=== PATIENT | male | born 1980 | race Caucasian/White ===

== ENCOUNTER 2020-11-29 03:38 | Emergency (ER) | payer OTHER, SELFPAY ==
[2020-11-29 03:48] VITALS: BP 148/74; PULSE 71; RESP 20; TEMP 36.6; O2SAT 100; BMI 28.8
--- NOTE | 2020-11-29 04:00 | CT_ITS ---
PROCEDURE INFORMATION: Exam: CT Lumbar Spine Without Contrast Exam date and time: 11/29/2020 4:00 AM Age: 40 years old Clinical indication: Patient HX: Low back pain and coccyx pain after doing multiple situps really fast yesterday pain is into his coccyx but not down his legs; Additional info: Severe lower back pain TECHNIQUE: Imaging protocol: Computed tomography images of the lumbar spine without contrast. Radiation optimization: All CT scans at this facility use at least one of these dose optimization techniques: automated exposure control; mA and/or kV adjustment per patient size (includes targeted exams where dose is matched to clinical indication); or iterative reconstruction. COMPARISON: No relevant prior studies available. FINDINGS: Vertebrae: No acute fracture. Normal alignment. Discs/Spinal canal/Neural foramina: There is a mild broad-based left paracentral disc bulge at L4/5 and L5/S1 Other bones/joints: The osseous structures are intact without a fracture or dislocation. Reproductive: The prostate gland is mildly enlarged. Soft tissues: There is mild stranding adjacent to the distal coccyx which may be a mild soft tissue contusion. IMPRESSION: 1. Mild pericoccygeal stranding which may be a mild soft tissue contusion. No acute fracture or dislocation. 2. Mild broad based left paracentral disc bulging at L4/5 and L5/S1.
[2020-11-29 04:02] VITALS: BP 149/91; PULSE 80; O2SAT 100
[2020-11-29 04:13] LABS: Basophils % 0.4 % (0.1-2.0); Eosinophils # 0.2 K/mm3 (0.0-0.4); Eosinophils % 2.1 % (0.1-12.0); Hematocrit 43.7 % (42.0-52.0); Lymphocytes # 3.1 K/mm3 (0.7-4.5); Lymphocytes % 36.8 % (10-50); Mean Corpuscular HGB Conc 34.3 g/dL (31.8-35.4); Mean Corpuscular Hemoglobin 31.1 pg (27.0-31.2); Mean Corpuscular Volume 90.6 fl (80-94); Mean Platelet Volume 7.5 fl (7.4-10.4); Monocytes # 0.5 K/mm3 (0.1-1.0); Monocytes % 5.6 % (1.7-9.3); Neutrophils # 4.6 K/mm3 (1.8-7.8); Neutrophils % 55.1 % (37.0-80.0); Platelet Count 206 K/mm3 (142-424); Red Blood Count 4.82 M/mm3 (4.60-6.20); Red Cell Distribution Width 12.9 % (11.5-17.5); White Blood Count 8.3 K/mm3 (4.8-10.8)
[2020-11-29 04:17] LABS: Alanine Aminotransferase 22 U/L (12-78); Albumin Level 4.2 g/dl (3.5-5.0); Albumin/Globulin Ratio 1.6 (1.1-1.8); Alkaline Phosphatase 65 U/L (38-126); Anion Gap 7.1 mEq/L (5-15); Aspartate Amino Transferase 25 U/L (17-59); Bilirubin,Total 0.8 mg/dl (0.2-1.3); Blood Urea Nitrogen 18 mg/dl (9-20); Carbon Dioxide 29 mmol/L (22.0-30.0); Chloride 103 mmol/L (98-107); Creatinine Clearance Estimated 87 mL/min (50-200); Estimated Glomerular Filt Rate 56 ml/min (>60); GFR (African American) 68 ML/MIN (>60); Globulin 2.7 g/dL (1.3-3.2); Glucose 113 mg/dl (74-100); Potassium 4.1 mmoL/L (3.5-5.1); Sodium 135 mmol/L (136-145); Total Protein,Serum 6.9 g/dl (6.3-8.2)
[2020-11-29 04:23] LABS: C-Reactive Protein 2.3 mg/L (0-4)
[2020-11-29 04:35] LABS: Procalcitonin 0.073 ng/mL (0.0-2.0)
[2020-11-29 05:00] LABS: Erythrocyte Sedimentation Rate 16 mm/hr (0-15)
[2020-11-29 05:15] VITALS: BP 145/77; PULSE 72; O2SAT 99
--- NOTE | 2020-11-29 05:55 | HMH.EDGENADL ---
ED Disposition Clinical Impression: Coccygeal pain, acute Coccygeal contusion Qualifiers: Encounter type: initial encounter Qualified Code(s): S30.0XXA - Contusion of lower back and pelvis, initial encounter Disposition: Home, Self-Care Condition on Discharge: Good Instructions: Coccydynia Additional Instructions: use meds and see pcp for follow up Prescriptions: predniSONE [Prednisone 20mg Tab] 20 mg PO BID #10 tab Transmission Status: Pending to [facility] # Ketorolac Tromethamine [Toradol 10mg tablet] 10 mg PO Q6HP PRN #10 tab MDD 40mg/day PRN Reason: Moderate To Severe Pain Transmission Status: Pending to [facility] # Referrals: Bianca Denise [Primary Care Provider] - - Critical Care Critical Care Time: No Attestation: On 11/29/20, the high probability of a clinically significant, sudden or life threatening deterioration of the following system(s) required my full and direct attention, intervention and personal management. The time I documented below is in addition to time spent performing reported procedures but includes the following listed in this critical care notation. Medical Decision Making - Medical Records Medical records reviewed: Yes: I reviewed the patient's medical records. - Gautam Inquiry Pt receiving controlled substance: No Vital Signs: 11/29/20 03:48 11/29/20 04:02 11/29/20 05:15 Temperature 97.8 F Temperature Source Oral Pulse Rate 80 72 Pulse Rate [Right] 71 Respiratory Rate 20 Blood Pressure 149/91 H 145/77 H Blood Pressure [Right Arm] 148/74 H Blood Pressure Mean [Right Arm] 98 Blood Pressure Source [Right Arm] Automatic Cuff Blood Pressure Position [Right Arm] Supine 02 Sat by Pulse Oximetry 100 100 99 Oxygen Delivery Method Room Air - Lab Data Lab results reviewed: Yes: I reviewed the patient's lab results. Lab Results 11/29/20 04:00: WBC 8.3, RBC 4.82, Hgb 15.0, Hct 43.7, MCV 90.6, MCH 31.1, MCHC 34.3, RDW 12.9, Plt Count 206, MPV 7.5, Neut % (Auto) 55.1, Lymph % (Auto) 36.8, [place] % (Auto) 5.6, Eos % (Auto) 2.1, Baso % (Auto) 0.4, Neut # (Auto) 4.6, Lymph # (Auto) 3.1, [place] # (Auto) 0.5, Eos # (Auto) 0.2, Baso # (Auto) 0.0, ESR 16 H 11/29/20 04:00: Sodium 135 L, Potassium 4.1, Chloride 103, Carbon Dioxide 29, Anion Gap 7.1, BUN 18, Creatinine 1.40 H, Estimated Creat Clear 87, Estimated GFR 56 L, Est GFR ( Amer) 68, Glucose 113 H, Calcium 9.0, Total Bilirubin 0.8, AST 25, ALT 22, Alkaline Phosphatase 65, C-Reactive Protein 2.3, Total Protein 6.9, Albumin 4.2, Globulin 2.7, Albumin/Globulin Ratio 1.6, Procalcitonin 0.073 Result diagrams: 11/29/20 04:00 11/29/20 04:00 Orders (Tests/Meds): ED MEDICATIONS Generic Name Dose Route Start Last Admin Trade Name Freq PRN Reason Stop Dose Admin Sodium Chloride 1,000 mls @ 999 mls/hr 11/29/20 04:00 11/29/20 04:04 Sod Chlor 0.9% 1000ml Bag IV 11/29/20 05:00 999 mls/hr .Q1H1M CORNELL Administration Discontinued Medications Generic Name Dose Route Start Last Admin Trade Name Freq PRN Reason Stop Dose Admin Hydromorphone HCl 1 mg 11/29/20 03:58 11/29/20 04:03 Hydromorphone 2mg/Ml Syringe IV 11/29/20 03:59 1 mg ONCE ONE Administration Ketorolac Tromethamine 30 mg 11/29/20 05:58 11/29/20 06:00 Ketorolac 30mg/Ml Vial IV 11/29/20 05:59 30 mg ONCE ONE Administration Methylprednisolone Sodium Succinate 125 mg 11/29/20 03:58 11/29/20 04:03 Methylprednisolone Sod Succ 125mg Vial IV 11/29/20 03:59 125 mg ONCE ONE Administration Ondansetron HCl 4 mg 11/29/20 03:58 11/29/20 04:03 Ondansetron 4mg/2ml Vial IV 11/29/20 03:59 4 mg ONCE ONE Administration - CT Data CT Scan: L-Spine Time Received: 06:[address] Reviewed: Yes: I have viewed the radiologist's interpretation Preliminary Findings: Abnormal (see report ) Medical Decision Narrative: ct showed pericoccygeal stranding General Adult H
[2020-11-29 06:26] VITALS: BP 145/77; PULSE 72; RESP 20; TEMP 36.6; O2SAT 99
== END 2020-11-29 06:39 | disposition home or self-care (01) ==
PROVIDERS: Emergency Provider Emergency Medicine; PCP Family Medicine
DX: M53.3 Sacrococcygeal disorders, not elsewhere classified (principal)
CPT/HCPCS: 72131; 80053; 84145; 85025; 85651; 86140; 96365; 96367; 99282; J2405

== ENCOUNTER 2021-07-09 22:29 | Emergency (ER) | payer OTHER, SELFPAY ==
[2021-07-09 22:31] VITALS: BP 137/89; PULSE 68; RESP 16; TEMP 36.9; O2SAT 96; BMI 28.8
--- NOTE | 2021-07-09 22:36 | XR_ITS ---
PROCEDURE INFORMATION: Exam: XR Right Finger(s) Exam date and time: 07/09/2021 10:36 PM Age: 41 years old Clinical indication: Injury or trauma; Other: Laceration; Right; Index finger; Additional info: Lac TECHNIQUE: Imaging protocol: XR Right fingers. Views: Minimum 2 views. COMPARISON: No relevant prior studies available. FINDINGS: Bones/joints: Normal. Soft tissues: Normal. IMPRESSION: No acute findings.
--- NOTE | 2021-07-09 22:47 | PC.NURSE ---
pt to rad
--- NOTE | 2021-07-09 22:49 | PC.NURSE ---
pt returned from rad
[2021-07-09 23:00] VITALS: BP 142/88; PULSE 74; O2SAT 95
--- NOTE | 2021-07-09 23:03 | PC.NURSE ---
pt to rad.
--- NOTE | 2021-07-09 23:33 | HMH.EDWNDL ---
ED Disposition Clinical Impression: Laceration of finger Qualifiers: Encounter type: initial encounter Finger: index finger Damage to nail status: with damage Foreign body presence: without foreign body Laterality: right Qualified Code(s): S61.310A - Laceration without foreign body of right index finger with damage to nail, initial encounter Disposition: Hospice - Medical Facility Condition on Discharge: Good Instructions: DI for Laceration Repair Additional Instructions: suture out 10 days and recheck if needed Referrals: Bianca Denise [Primary Care Provider] - - Critical Care Critical Care Time: No Attestation: On 07/09/21, the high probability of a clinically significant, sudden or life threatening deterioration of the following system(s) required my full and direct attention, intervention and personal management. The time I documented below is in addition to time spent performing reported procedures but includes the following listed in this critical care notation. Medical Decision Making - Medical Records Medical records reviewed: Yes: I reviewed the patient's medical records. - Gautam Inquiry Pt receiving controlled substance: No Vital Signs: 07/09/21 22:31 07/09/21 23:00 Temperature 98.4 F Temperature Source Oral Pulse Rate 74 Pulse Rate [Left] 68 Respiratory Rate 16 Blood Pressure 142/88 H Blood Pressure [Right Arm] 137/89 Blood Pressure Mean [Right Arm] 105 02 Sat by Pulse Oximetry 96 95 Oxygen Delivery Method Room Air Room Air - Radiology Data #1 Image(s): Hand Image Reviewed: Yes I have reviewed radiologist's interpretation Preliminary Findings: No Fracture Seen Medical Decision Narrative: will have pt keep clean and dry and sutures out 10 days and recheck if needed Wound/Laceration HPI - General Chief Complaint: Wound/Laceration Stated Complaint: AO 07/09@2019 lac to R index finger Time Seen by Provider: 07/09/21 23:00 Mode of Arrival: Ambulatory Source of Information: Patient Limitations: Physical Limitations Description of Symptoms (Recalled from ER Triage Doc. by RN): pt stated he got a right index finger laceration on a new kitchen knife as he was removing it from the package - History of Present Illness HPI narrative: avulsion lac dorsum rt index lac at home Onset (ago): hour(s) Extremity Location: Right: hand Place: home Patient tetanus UTD: Yes Context: accidental Associated symptoms: none - Related Data Home Medications Medication Instructions Recorded Confirmed No Known Home Medications 01/22/21 01/22/21 Allergies Allergy/AdvReac Type Severity Reaction Status Date / Time Sulfa (Sulfonamide Allergy Verified 01/22/21 11:50 Antibiotics) [facility] History - Hepatitis A Screen Drug use history?: No High risk sexual behaviors?: No History of sexually transmitted infection?: No Currently employed?: No Childcare worker?: No Do you have indoor plumbing?: Yes Do you have electricity?: Yes Attestation statement:: This patient has been screened for Hepatitis A risk factors. I have reviewed the patient's past medical history: Yes Medical History: Denies:: Cancer, Diabetes Mellitus Type 1, Diabetes Mellitus Type 2, MRSA Other Surgeries: Yes: Other Amputation: No Fractures: No Comment: eye, cyst removed, prk in eyes - Social History Smoking Status: Never smoker Alcohol Intake: never Substance Use Type: denies use Occupational Status: employed Housing: house Household Members: family Family Hx:: No significant family history ROS Obtained: Yes All systems reviewed & no additional complaints - Constitutional Constitutional: Denies fever(s) - Eyes Eyes: Denies change in vision - ENT Ears, Nose, Mouth, and Throat: Denies sore throat - Cardiovascular Cardiovascular: Denies chest pain - Respiratory Respiratory: Denies shortness of breath - Gastrointestinal Gastrointestingal: Denies: abdominal pain - Shelia
[2021-07-09 23:36] VITALS: BP 148/93; PULSE 72; RESP 16; TEMP 36.9; O2SAT 95
== END 2021-07-10 00:04 | disposition home or self-care (01) ==
PROVIDERS: Emergency Provider Emergency Medicine; PCP Family Medicine
DX: S61.310A Laceration without foreign body of right index finger with damage to nail, initial encounter (principal); W26.0XXA Contact with knife, initial encounter; Y92.010 Kitchen of single-family (private) house as the place of occurrence of the external cause
CPT/HCPCS: 12001; 73140; 99282

== ENCOUNTER 2022-09-13 08:00 | Emergency (ER) | payer OTHER, SELFPAY ==
[2022-09-13 08:10] VITALS: BP 136/79; PULSE 94; RESP 17; TEMP 37.9; O2SAT 95; BMI 29.8
--- NOTE | 2022-09-13 08:18 | EXP.UTC ---
Discharge Plan Disposition Patient Disposition: Home, Self-Care Condition: Good Prescriptions Prescriptions: New amoxicillin-pot clavulanate 875-125 mg Tablet 1 tab PO Q12H Qty: 20 0RF Referrals Follow up/Referrals: Bianca Denise [Primary Care Provider] - See instructions Activity Restrictions/Add. Instructions Additional Instructions/Restrictions: Clean bites with antibacterial soap and water Follow up immediately if signs of worsening infection including but not limited to spreading of redness, drainage, streaks ETC Take oral antibiotics as prescribed Follow up with your Family Doctor if no improvement or any worsening of symptoms Clinical Impressions Clinical Impression: Cat bite Qualifiers: Encounter type: initial encounter Qualified Code(s): W55.01XA - Bitten by cat, initial encounter Stand Alone Forms Stand Alone Forms: Work/School Release Instructions Patient Instructions: Amoxicillin and Clavulanic Acid, DI for Cat Bite Discharge ED Provider: Melyssa Grimes [facility] HPI General Stated complaint: AO [id number] cat bite to right foot Time Seen by Provider: 09/13/22 08:18 History of Present Illness Provider Complaint: Patient state that his cat attacked his right foot yesterday while he was doing laundry and bite him on his right ankle States that since then it has got more sore, tender to the touch and starting to look a little red and hurts States that he came in this morning cause it wasnt feeling any better and more sore Related Data Previous Rx's Medication Instructions Recorded amoxicillin 875 mg-potassium 1 tab PO Q12H #20 tabs 09/13/22 clavulanate 125 mg tablet Allergies Allergy/AdvReac Type Severity Reaction Status Date / Time Sulfa (Sulfonamide Allergy Verified 01/08/22 09:53 Antibiotics) [facility] Disclaimer: The information contained in this section may have been updated after the patient was seen, as this information can be updated by other users. Social History Smoking Status: Never smoker alcohol intake: never substance use type: denies use current occupational status: employed Travel in the last 8 weeks: None household members: family housing: house ROS Obtained: Yes All systems reviewed & no additional complaints except as documented and Yes Systems reviewed as appropriate & no additional complaints except as documented Constitutional Constitutional: Reports system reviewed and no additional complaints, except as documented, Reports as per HPI and Denies fever(s) ENT Ears, Nose, Mouth, and Throat: Reports system reviewed and no additional complaints, except as documented and Reports as per HPI Cardiovascular Cardiovascular: Reports system reviewed and no additional complaints, except as documented and Reports as per HPI Respiratory Respiratory: Reports system reviewed and no additional complaints, except as documented and Reports as per HPI Gastrointestinal Gastrointestingal: Reports system reviewed and no additional complaints, except as documented and as per HPI Integumentary/Breasts Skin/Breast: Reports system reviewed and no additional complaints, except as documented and Reports as per HPI Comments: cat bite to right ankle Physical Exam General General appearance: alert and in no apparent distress Respiratory Respiratory exam: Present normal lung sounds bilaterally; Absent respiratory distress or wheezes Cardiovascular Cardiovascular exam: Present regular rate, normal rhythm and normal heart sounds Abdominal Exam Abdominal exam: Present soft and normal bowel sounds; Absent distention or tenderness Expanded Lower Extremity Exam Right: Top foot image: 1. cat bite noted with mild redness around bites Neurovascular/Tendon exam: Present normal capillary refill; Absent pulse deficit or motor deficit Neurological Exam Neurological exam: Present alert and oriented X3 Medical Decision Making Gautam Inquiry Pt receivi
[2022-09-13 08:44] VITALS: BP 136/79; PULSE 94; RESP 95; TEMP 37.9; O2SAT 94
== END 2022-09-13 08:50 | disposition home or self-care (01) ==
PROVIDERS: Emergency Provider Nurse Practitioner; PCP Family Medicine
DX: S91.051A Open bite, right ankle, initial encounter (principal); W55.01XA Bitten by cat, initial encounter
CPT/HCPCS: 90471; 90715; 99212; 99214; G0463

== ENCOUNTER 2022-09-14 21:11 | Observation (INO) | payer OTHER, SELFPAY ==
[2022-09-14 21:19] VITALS: BP 136/92; PULSE 76; RESP 18; TEMP 36.8; O2SAT 97; BMI 29.5
--- NOTE | 2022-09-14 21:45 | HMH.EDANIB ---
Discharge Plan Disposition Patient Disposition: Admitted As Inpatient Chief Complaint: Animal Bite Clinical Impressions Clinical Impression: Cat bite, Cellulitis Discharge ED Provider: Yvon (TERESITA)David Animal Bite HPI General Chief Complaint: Animal Bite Stated Complaint: AO09/12 cat bite RT leg Time Seen by Provider: 09/14/22 21:45 Mode of Arrival: Ambulatory Source of Information: Patient Limitations: No Limitations Description of Symptoms (Recalled from ER Triage Doc. by RN): Pt arrives to ED with c/o increasing pain and swelling to right lower leg r/t a cat bite that occured . Pt states it was his cat and the animal is up to date on shots. Pt was seen at [facility] yesterday and given anbx, but states it has worsen since then. History of Present Illness HPI narrative: recent cat bite rt lower ext and was his cat and immun current - pt was seen in [facility] and given abx but has continued to worsen and pt feels achey and nausea - no fever MD complaint: animal bite Onset (ago): day(s) Animal: cat Description of animal: household pet Mechanism: bite Right: lower leg Pain description: sharp Context: unprovoked Associated symptoms: none Treatments prior to arrival: other (abx ) Related Data Patient tetanus UTD: Yes Previous Rx's Medication Instructions Recorded amoxicillin 875 mg-potassium 1 tab PO Q12H #20 tabs 09/13/22 clavulanate 125 mg tablet Allergies Allergy/AdvReac Type Severity Reaction Status Date / Time Sulfa (Sulfonamide Allergy Verified 01/08/22 09:53 Antibiotics) [facility] Disclaimer: The information contained in this section may have been updated after the patient was seen, as this information can be updated by other users. Social History Smoking Status: Never smoker alcohol intake: never substance use type: denies use current occupational status: employed Travel in the last 8 weeks: None household members: family housing: house ROS Obtained: Yes All systems reviewed & no additional complaints except as documented Physical Exam General General appearance: alert Head Head exam: normocephalic Eye Eye exam: Present PERRL and EOMI ENT ENT exam: Present mucous membranes moist Neck Neck exam: Present trachea midline Respiratory Respiratory exam: Absent respiratory distress Cardiovascular Cardiovascular exam: Present regular rate Abdominal Exam Abdominal exam: Present soft Expanded Lower Extremity Exam Right: Lower leg exam: Present tenderness and erythema; Absent Homans' sign Neurovascular/Tendon exam: Absent pulse deficit, motor deficit or sensory deficit Neurological Exam Neurological exam: Present alert, oriented X3 and CN II-XII intact; Absent motor sensory deficit Psychiatric Psychiatric exam: Present normal affect Skin Skin exam: Present other (bite with tenderness and reddness rt lower ext ) Medical Decision Making Medical Records Medical records reviewed: Yes I reviewed the patient's medical records. Gautam Inquiry Pt receiving controlled substance: No Vital Signs: 09/14/22 21:19 Temperature 98.3 F Temperature Source Oral Pulse Rate [Right] 76 Respiratory Rate 18 Blood Pressure [Right Arm] 136/92 H Blood Pressure Mean [Right Arm] 106 Blood Pressure Position [Right Arm] Sitting 02 Sat by Pulse Oximetry 97 Oxygen Delivery Method Room Air Lab Data Lab results reviewed: Yes I reviewed the patient's lab results. Lab Results 09/14/22 22:00: WBC 10.1, RBC 4.95, Hgb 15.8, Hct 46.5, MCV 93.8, MCH 31.9 H, MCHC 34.0, RDW 12.9, Plt Count 203, MPV 7.7, Neut % (Auto) 72.5, Lymph % (Auto) 20.9, [place] % (Auto) 4.9, Eos % (Auto) 1.1, Baso % (Auto) 0.6, Neut # (Auto) 7.3, Lymph # (Auto) 2.1, [place] # (Auto) 0.5, Eos # (Auto) 0.1, Baso # (Auto) 0.1 09/14/22 22:00: Sodium 136, Potassium 3.9, Chloride 101, Carbon Dioxide 27, Anion Gap 11.9, BUN 16, Creatinine 1.40 H, Estimated Creat Clear 87, Estimated GFR 55 L, Est GFR ( Amer) 6
--- NOTE | 2022-09-14 21:53 | PC.NURSE ---
Dr. Sanz at
[2022-09-14 22:10] LABS: Coronavirus 19, PCR Not Detected (NotDetected); Influenza A, PCR Not Detected (NotDetected); Influenza B, PCR Not Detected (NotDetected)
[2022-09-14 22:16] LABS: Basophils # 0.1 K/mm3 (0-0.2); Basophils % 0.6 % (0.1-2.0); Chloride 101 mmol/L (98-107); Eosinophils # 0.1 K/mm3 (0.0-0.4); Eosinophils % 1.1 % (0.1-12.0); Hematocrit 46.5 % (42.0-52.0); Hemoglobin 15.8 g/dL (14.1-18.0); Lymphocytes # 2.1 K/mm3 (0.7-4.5); Lymphocytes % 20.9 % (10-50); Mean Corpuscular Hemoglobin 31.9 pg (27.0-31.2); Mean Corpuscular Volume 93.8 fl (80-94); Mean Platelet Volume 7.7 fl (7.4-10.4); Monocytes # 0.5 K/mm3 (0.1-1.0); Monocytes % 4.9 % (1.7-9.3); Neutrophils # 7.3 K/mm3 (1.8-7.8); Neutrophils % 72.5 % (37.0-80.0); Platelet Count 203 K/mm3 (142-424); Potassium 3.9 mmoL/L (3.5-5.1); Red Blood Count 4.95 M/mm3 (4.60-6.20); Red Cell Distribution Width 12.9 % (11.5-17.5); Sodium 136 mmol/L (136-145); White Blood Count 10.1 K/mm3 (4.8-10.8)
[2022-09-14 22:19] LABS: Alanine Aminotransferase 38 U/L (12-78); Albumin Level 4.7 g/dl (3.5-5.0); Albumin/Globulin Ratio 1.5 (1.1-1.8); Alkaline Phosphatase 70 U/L (38-126); Anion Gap 11.9 mEq/L (5-15); Aspartate Amino Transferase 42 U/L (17-59); Bilirubin,Total 1.1 mg/dl (0.2-1.3); Blood Urea Nitrogen 16 mg/dl (9-20); Carbon Dioxide 27 mmol/L (22.0-30.0); Creatinine Clearance Estimated 87 mL/min (50-200); Estimated Glomerular Filt Rate 55 ml/min (>60); GFR (African American) 67 ML/MIN (>60); Globulin 3.2 g/dL (1.3-3.2); Total Protein,Serum 7.9 g/dl (6.3-8.2)
[2022-09-14 22:20] LABS: Calcium 9.2 mg/dl (8.4-10.2); Glucose 123 mg/dl (74-100); Lactic Acid 1.1 mmol/L (0.7-2.1)
--- NOTE | 2022-09-14 22:39 | PC.NURSE ---
Called report to Nikole Gutierrez RN
[2022-09-14 22:40] VITALS: BP 135/89; PULSE 75; RESP 19; TEMP 36.8; O2SAT 98
--- NOTE | 2022-09-14 22:50 | PC.NURSE ---
pt arrived @ [phone] via wheelchair
--- NOTE | 2022-09-14 22:53 | EXP.HP ---
History of Present Illness *Admission Date: 09/14/22 *Reason for visit:: Cat bite *History of present illness: Mr. Velázquez is a 42 year old male who was bitten by his house cat; was treated at [facility] yesterday and was started on Augmenten. He was also given a Tetanus shot. Comes in to the ER tonight, stating that his RLE/ankle is worse. Having more pain and redness. CBC and CMP are unchanged from yesterday. No abscess appreciated, but erythema and cellulitis more pronounced. [facility] Disclaimer: The information contained in this section may have been updated after the patient was seen, as this information can be updated by other users. Surgical History H/O removal of cyst Family History Other No significant family history Social History Smoking Status: Never smoker alcohol intake: never substance use type: denies use current occupational status: employed Travel in the last 8 weeks: None household members: family housing: house Review of Systems Review of Systems Review of systems:: pertinent systems reviewed and negative unless documented below Constitutional Constitutional: Reports system reviewed and no additional complaints, except as documented, Denies chills and Reports fever(s) Eyes Eyes: Reports system reviewed and no additional complaints, except as documented ENT Ears, Nose, Mouth, and Throat: Reports system reviewed and no additional complaints, except as documented *Cardiovascular Cardiovascular: Reports system reviewed and no additional complaints, except as documented *Respiratory Respiratory: Reports system reviewed and no additional complaints, except as documented *Gastrointestinal Gastrointestinal: Reports system reviewed and no additional complaints, except as documented, Reports nausea and Reports vomiting *Genitourinary Genitourinary: Reports system reviewed and no additional complaints, except as documented *Musculoskeletal Musculoskeletal: Reports system reviewed and no additional complaints, except as documented Integumentary/Breasts Skin/Breast: Reports system reviewed and no additional complaints, except as documented Comments: Increased pain and redness around right lower leg and ankle. *Neurologic Neurologic: Reports system reviewed and no additional complaints, except as documented Psychiatric Psychiatric: Reports system reviewed and no additional complaints, except as documented Endocrine Endocrine: Reports system reviewed and no additional complaints, except as documented Hematologic/Lymphatic Hematologic/Lymphatic: Reports system reviewed and no additional complaints, except as documented Allergic/Immunologic Allergic/Immunologic: Reports system reviewed and no additional complaints, except as documented Meds Home Medications and Allergies Home Medications Medication Instructions Recorded Confirmed Type amoxicillin 875 mg-potassium 1 tab PO Q12H #20 tabs 09/13/22 09/14/22 Rx clavulanate 125 mg tablet New Prescriptions to Start Prescriptions: Allergies Allergy/AdvReac Type Severity Reaction Status Date / Time Sulfa (Sulfonamide Allergy Verified 01/08/22 09:53 Antibiotics) Exam Data for Last 24 hours Vital signs and Labs for Last 24 Hours: Temp Pulse Resp BP Pulse Ox 98.3 F 75 19 135/89 97 09/14/22 22:40 09/14/22 22:40 09/14/22 22:40 09/14/22 22:40 09/14/22 21:19 Laboratory Results - last 24 hr 09/14/22 22:00: WBC 10.1, RBC 4.95, Hgb 15.8, Hct 46.5, MCV 93.8, MCH 31.9 H, MCHC 34.0, RDW 12.9, Plt Count 203, MPV 7.7, Neut % (Auto) 72.5, Lymph % (Auto) 20.9, [place] % (Auto) 4.9, Eos % (Auto) 1.1, Baso % (Auto) 0.6, Neut # (Auto) 7.3, Lymph # (Auto) 2.1, [place] # (Auto) 0.5, Eos # (Auto) 0.1, Baso # (Auto) 0.1 09/14/22 22:00: Sodium 136, Potassium 3.9, Chloride 101, Carbon Di
[2022-09-14 22:54] VITALS: BP 150/84; PULSE 75; RESP 18; TEMP 37.2; O2SAT 94; BMI 29.6
[2022-09-15 04:00] VITALS: BP 122/63; PULSE 64; RESP 18; TEMP 37.3; O2SAT 94; BMI 29.6
--- NOTE | 2022-09-15 06:24 | PC.NURSE ---
NO ACUTE CHANGES SINCE PT ARRIVED TO THE FLOOR. PT HAS RESTED WELL. +1 NON-PITTING EDEMA TO RT LOWER LEG SKIN IS RED AND WARM TO TOUCH. NO OPEN AREA. REMAINS ON ROOM AIR. AMBULATING INDEPENDENTLY. NO C/O PAIN.
[2022-09-15 07:53] LABS: Basophils % 0.5 % (0.1-2.0); Eosinophils # 0.1 K/mm3 (0.0-0.4); Eosinophils % 1.7 % (0.1-12.0); Hematocrit 44.9 % (42.0-52.0); Hemoglobin 15.7 g/dL (14.1-18.0); Lymphocytes # 2.1 K/mm3 (0.7-4.5); Lymphocytes % 25.5 % (10-50); Mean Corpuscular Hemoglobin 32.6 pg (27.0-31.2); Mean Corpuscular Volume 93.1 fl (80-94); Mean Platelet Volume 7.5 fl (7.4-10.4); Monocytes # 0.5 K/mm3 (0.1-1.0); Monocytes % 5.9 % (1.7-9.3); Neutrophils # 5.3 K/mm3 (1.8-7.8); Neutrophils % 66.4 % (37.0-80.0); Platelet Count 213 K/mm3 (142-424); Red Blood Count 4.82 M/mm3 (4.60-6.20); Red Cell Distribution Width 12.8 % (11.5-17.5); White Blood Count 8.1 K/mm3 (4.8-10.8)
[2022-09-15 07:58] LABS: Alanine Aminotransferase 35 U/L (12-78); Albumin Level 4.4 g/dl (3.5-5.0); Albumin/Globulin Ratio 1.3 (1.1-1.8); Alkaline Phosphatase 70 U/L (38-126); Anion Gap 10.5 mEq/L (5-15); Aspartate Amino Transferase 35 U/L (17-59); Bilirubin,Total 1.4 mg/dl (0.2-1.3); Blood Urea Nitrogen 16 mg/dl (9-20); Carbon Dioxide 31 mmol/L (22.0-30.0); Chloride 100 mmol/L (98-107); Creatinine Clearance Estimated 94 mL/min (50-200); Estimated Glomerular Filt Rate 60 ml/min (>60); GFR (African American) 73 ML/MIN (>60); Globulin 3.3 g/dL (1.3-3.2); Glucose 99 mg/dl (74-100); Magnesium 2.1 mg/dl (1.6-2.3); Potassium 4.5 mmoL/L (3.5-5.1); Sodium 137 mmol/L (136-145); Total Protein,Serum 7.7 g/dl (6.3-8.2)
[2022-09-15 08:00] VITALS: BP 128/86; PULSE 75; RESP 20; TEMP 36.9; O2SAT 100
--- NOTE | 2022-09-15 08:26 | EXP.PN ---
Subjective *Date: 09/15/22 *Time: 08:26 Interval history: Date of service September 15, 2022 The patient reports no acute events since admission. I am accompanied by his nurse Delia today. He has tolerated his IV antibiotic with no adverse events. His ED CBC identified no leukocytoses. He is inquiring about discharge home. Exam Data for Last 24 hours Vital signs and Labs for Last 24 Hours: Temp Pulse Resp BP Pulse Ox 98.4 F 75 20 128/86 100 09/15/22 08:00 09/15/22 08:00 09/15/22 08:00 09/15/22 08:00 09/15/22 08:00 Laboratory Results - last 24 hr 09/14/22 22:00: WBC 10.1, RBC 4.95, Hgb 15.8, Hct 46.5, MCV 93.8, MCH 31.9 H, MCHC 34.0, RDW 12.9, Plt Count 203, MPV 7.7, Neut % (Auto) 72.5, Lymph % (Auto) 20.9, [place] % (Auto) 4.9, Eos % (Auto) 1.1, Baso % (Auto) 0.6, Neut # (Auto) 7.3, Lymph # (Auto) 2.1, [place] # (Auto) 0.5, Eos # (Auto) 0.1, Baso # (Auto) 0.1 09/14/22 22:00: Sodium 136, Potassium 3.9, Chloride 101, Carbon Dioxide 27, Anion Gap 11.9, BUN 16, Creatinine 1.40 H, Estimated Creat Clear 87, Estimated GFR 55 L, Est GFR ( Amer) 67, Glucose 123 H, Calcium 9.2, Total Bilirubin 1.1, AST 42, ALT 38, Alkaline Phosphatase 70, Total Protein 7.9, Albumin 4.7, Globulin 3.2, Albumin/Globulin Ratio 1.5 09/14/22 22:00: Lactate 1.1 09/14/22 22:00: SARS-CoV-2 (PCR) Not detected, Influenza A Untype (PCR) Not detected, Influenza Type B (PCR) Not detected 09/15/22 07:30: WBC 8.1, RBC 4.82, Hgb 15.7, Hct 44.9, MCV 93.1, MCH 32.6 H, MCHC 35.0, RDW 12.8, Plt Count 213, MPV 7.5, Neut % (Auto) 66.4, Lymph % (Auto) 25.5, [place] % (Auto) 5.9, Eos % (Auto) 1.7, Baso % (Auto) 0.5, Neut # (Auto) 5.3, Lymph # (Auto) 2.1, [place] # (Auto) 0.5, Eos # (Auto) 0.1, Baso # (Auto) 0.0 09/15/22 07:30: Sodium 137, Potassium 4.5, Chloride 100, Carbon Dioxide 31 H, Anion Gap 10.5, BUN 16, Creatinine 1.30 H, Estimated Creat Clear 94, Estimated GFR 60, Est GFR ( Amer) 73, Glucose 99, Calcium 9.0, Magnesium 2.1, Total Bilirubin 1.4 H, AST 35, ALT 35, Alkaline Phosphatase 70, Total Protein 7.7, Albumin 4.4, Globulin 3.3 H, Albumin/Globulin Ratio 1.3 I & O for Last 24 hours: Intake & Output 09/12/22 09/13/22 09/14/22 09/15/22 23:59 23:59 23:59 23:59 Weight 90.809 kg 90.809 kg Constitutional Constitutional: no acute distress *Routine HEENT Exam Head: Present normocephalic Eye: Present EOMI and PERRL ENT: Present mucous membranes moist *Routine Neck Exam Neck: Present supple; Absent lymphadenopathy *Routine Respiratory Exam Respiratory: Present CTA bilaterally, normal respiratory effort and symmetric chest movement *Routine Cardiovascular Exam Cardiovascular: Present RRR *Routine Abdominal Exam Abdominal: Present soft and normoactive bowel sounds; Absent tenderness *Routine Extremities Exam Extremities: Absent cyanosis, clubbing or edema Comments: Right lower extremity tibial surface approximately 1 inch above ankle with scabbing puncture lopez and surrounding erythema with inked outline from ED identifying regression of erythema. No fluctuance or purulence identified *Routine Skin Exam Skin: Present warm; Absent rash Comments: Erythema regressing from inked outline at right lower extremity with no blebs, eruptions, ecchymosis or fluctuance *Routine Neurological Exam Neurological: Present alert, oriented X3, moving all extremities, vision grossly intact, hearing grossly intact and normal speech; Absent sensory deficit or motor deficit Routine Psychiatric Exam Psychiatric: Present normal affect, normal thought process, cooperative, good insight and good judgment Assessment and Plan *Assessment and plan (1) Cat bite: Status: Acute Qualifiers: Encounter type: initial encounter Qualified Code(s): W55.01XA - Bitten by cat, initial encounter Category: Medical Code(s): W55.01XA - Bitten by cat, initial encounter (2) Cellulitis of right lower extremity: Status: Acute Category: Medical Code(s):
[2022-09-15 08:46] LABS: C-Reactive Protein 108.4 mg/L (0-4)
[2022-09-15 08:58] LABS: Erythrocyte Sedimentation Rate 23 mm/hr (0-15); Procalcitonin 0.092 ng/mL (0.0-2.0)
--- NOTE | 2022-09-15 09:01 | HMH.PHAINT1 ---
Pharmacy Intervention Comments: MEDICATION RECONCILIATION COMPLETE USING EXTERNAL PHARMACY FILL HISTORY AND ED DISCHARGE LIST FROM 09/14/22.
--- NOTE | 2022-09-15 10:48 | EXP.DC.SUM ---
General Admission date:: 09/14/22 Discharge date: 09/15/22 HPI HPI HPI: Mr. Velázquez is a 42 year old male who was bitten by his house cat; was treated at yesterday and was started on Augmentin. He was also given a Tetanus shot. Comes in to the ER tonight, stating that his RLE/ankle is worse. Having more pain and redness. Also creatinine 1.4. Hospital Course Hospital Course Hospital Course: The patient was admitted to the medical unit and provided IV fluids. Blood cultures were acquired and he was started on IV Unasyn. Cat bites typically are problematic for Bartonella henselae. His IV antibiotic therapy was transitioned to a macrolide. The patient identified improvement and requested to be discharged home to follow-up with his PCP. Inflammatory markers were acquired that identified a normal procalcitonin, near normal ESR and elevated CRP. He is instructed to take his macrolide antibiotic therapy and follow-up with his PCP to trend his laboratory studies if necessary. We discussed his chronically elevated creatinine and improvement with fluid resuscitation. He will follow-up with his PCP to discuss his creatinine, renal imaging if necessary and referral to a construction project mgr. I spent 35 minutes in [id number] time with the patient and nursing staff (Delia CASANOVA) concerning the discharge process. We discussed the admitting diagnoses and hospital course. We discussed identified improvement and the patient's desire to be discharged. We reviewed inpatient studies. The patient voiced understanding on the importance of follow-up with his primary care provider. The patient plans to be compliant with the medication regimen prescribed and follow-up appointments. He understands that he can return to the emergency department with any sudden changes or concerns. Exam Data for Last 24 hours Vital signs and Labs for Last 24 Hours: Temp Pulse Resp BP Pulse Ox 98.4 F 75 20 128/86 100 09/15/22 08:00 09/15/22 08:00 09/15/22 08:00 09/15/22 08:00 09/15/22 08:00 Laboratory Results - last 24 hr 09/14/22 22:00: WBC 10.1, RBC 4.95, Hgb 15.8, Hct 46.5, MCV 93.8, MCH 31.9 H, MCHC 34.0, RDW 12.9, Plt Count 203, MPV 7.7, Neut % (Auto) 72.5, Lymph % (Auto) 20.9, [place] % (Auto) 4.9, Eos % (Auto) 1.1, Baso % (Auto) 0.6, Neut # (Auto) 7.3, Lymph # (Auto) 2.1, [place] # (Auto) 0.5, Eos # (Auto) 0.1, Baso # (Auto) 0.1 09/14/22 22:00: Sodium 136, Potassium 3.9, Chloride 101, Carbon Dioxide 27, Anion Gap 11.9, BUN 16, Creatinine 1.40 H, Estimated Creat Clear 87, Estimated GFR 55 L, Est GFR ( Amer) 67, Glucose 123 H, Calcium 9.2, Total Bilirubin 1.1, AST 42, ALT 38, Alkaline Phosphatase 70, Total Protein 7.9, Albumin 4.7, Globulin 3.2, Albumin/Globulin Ratio 1.5 09/14/22 22:00: Lactate 1.1 09/14/22 22:00: SARS-CoV-2 (PCR) Not detected, Influenza A Untype (PCR) Not detected, Influenza Type B (PCR) Not detected 09/15/22 07:30: WBC 8.1, RBC 4.82, Hgb 15.7, Hct 44.9, MCV 93.1, MCH 32.6 H, MCHC 35.0, RDW 12.8, Plt Count 213, MPV 7.5, Neut % (Auto) 66.4, Lymph % (Auto) 25.5, [place] % (Auto) 5.9, Eos % (Auto) 1.7, Baso % (Auto) 0.5, Neut # (Auto) 5.3, Lymph # (Auto) 2.1, [place] # (Auto) 0.5, Eos # (Auto) 0.1, Baso # (Auto) 0.0 09/15/22 07:30: Sodium 137, Potassium 4.5, Chloride 100, Carbon Dioxide 31 H, Anion Gap 10.5, BUN 16, Creatinine 1.30 H, Estimated Creat Clear 94, Estimated GFR 60, Est GFR ( Amer) 73, Glucose 99, Calcium 9.0, Magnesium 2.1, Total Bilirubin 1.4 H, AST 35, ALT 35, Alkaline Phosphatase 70, Total Protein 7.7, Albumin 4.4, Globulin 3.3 H, Albumin/Globulin Ratio 1.3 09/15/22 07:30: ESR 23 H 09/15/22 07:30: C-Reactive Protein 108.4 H, Procalcitonin 0.092 I & O for Last 24 hours: Intake & Output 09/12/22 09/13/22 09/14/22 09/15/22 23:59 23:59 23:59 23:59 Weight 90.809 kg 90.809 kg Constitutional Constitutional: no acute distress *Routine HEENT Exam Head: Present normocephalic Eye: Present EOMI and PERRL ENT: Present mucous membranes
--- NOTE | 2022-09-15 11:00 | HMH.PHAINT1 ---
Pharmacy Intervention Comments: DISCHARGE MEDICATION COUNSELING PROVIDED. DISCUSSED STOPPING THE AUGMENTIN AND STARTING AZITHROMYCIN. PATIENT RECEIVED AN IV DOSE OF AZITHROMYCIN THIS MORNING SO HE SHOULD START THE TABLETS TOMORROW. WATCH FOR N/V/D, RECOMMENDED TO TAKE WITH FOOD. PATIENT VERBALIZED NO QUESTIONS AT THIS TIME.
--- NOTE | 2022-09-15 11:16 | PC.NURSE ---
pt has been discahrged from the facility. took all of his belongings with him and voiced understanding of all dc education and follow up appts.
--- NOTE | 2022-09-16 12:55 | CARE MANAGER ---
Contacted patient related to hospital discharge. Patient states that he is doing better. He is taking his medication and aware of follow up appointment. Denies questions or concerns at this time. EDILBERTO Esparza
== END 2022-09-15 11:17 | disposition home or self-care (01) ==
LOC: ER 21:27 → 2ND 22:30
PROVIDERS: Nurse Practitioner; Admitting Provider Family Medicine; Emergency Provider Emergency Medicine; PCP Family Medicine; Visit Provider Family Medicine
DX: L03.115 Cellulitis of right lower limb (principal); N17.9 Acute kidney failure, unspecified; W55.01XA Bitten by cat, initial encounter; I12.9 Hypertensive chronic kidney disease with stage 1 through stage 4 chronic kidney disease, or unspecified chronic kidney disease; N18.2 Chronic kidney disease, stage 2 (mild)
CPT/HCPCS: 36415; 80053; 83605; 83735; 84145; 85025; 85651; 86140; 87040; 99285; C9803; G0378; J0456; U0003; U0005